=== PATIENT | male | born 1965 | race Caucasian/White ===

== ENCOUNTER 2017-07-16 06:49 | Day surgery (SDC) | payer OTHER ==
[2017-07-16] MEDS ORDERED: ECOTRIN PO NR (07:37)
[2017-07-16] MEDS ORDERED: NACL 0.9% 500 ML 500 ML IV SCH (08:00)
[2017-07-16 08:02] LABS: Basophils % (Auto) 0.7 % (0.0-1.8); Eosinophils # (Auto) 0.4 K/mm3 (0.0-0.4); Eosinophils % (Auto) 8.7 % (0.0-4.3); Hemoglobin 13.4 gm/dl (11.8-15.2); Lymphocytes # (Auto) 1.1 K/mm3 (1.2-5.4); Lymphocytes % (Auto) 26.8 % (13.4-35.0); Mean Corpuscular HGB Conc 34 % (32-34); Mean Corpuscular Hemoglobin 34 pg (28-32); Mean Corpuscular Volume 100 fl (84-94); Monocytes # (Auto) 0.5 K/mm3 (0.0-0.8); Monocytes % (Auto) 11.7 % (0.0-7.3); Platelet Count 142 K/mm3 (140-440); Red Blood Count 3.89 M/mm3 (3.65-5.03); Red Cell Distribution Width 12.3 % (13.2-15.2)
[2017-07-16 08:15] LABS: INR 0.95 (0.87-1.13)
[2017-07-16 08:19] LABS: BUN/Creatinine Ratio 20; Blood Urea Nitrogen 12 mg/dL (9-20); Calcium 9.1 mg/dL (8.4-10.2); Hemolysis Index 10
[2017-07-16] MEDS ORDERED: HEPARIN/NS 5000 UNIT/500ML(CATH LAB) 1,000 ML IR ONE (08:35)
[2017-07-16] MEDS ORDERED: XYLOCAINE 2% INFILTRATI ONE (08:36)
[2017-07-16] MEDS: NITROGLYCERIN SYRINGE 3 ML ONE ×2 (09:16→09:23)
[2017-07-16] MEDS: CALAN ONE ×2 (09:19→09:23)
[2017-07-16] MEDS: HEPARIN 10,000 UNITS/10 ML ONE ×2 (09:19→09:23)
[2017-07-16] MEDS: SUBLIMAZE ONE ×2 (09:20→09:21)
[2017-07-16] MEDS: VERSED ONE ×2 (09:20→09:21)
--- NOTE | 2017-07-16 09:53 | Discharge Summary ---
Short Stay Discharge Plan Activity: advance as tolerated Weight Bearing Status: Full Weight Bearing Diet: low fat, low cholesterol, low salt, diabetic Wound: keep clean and dry Special Instructions: no heavy lifting (3 days), hold Metformin (48 hours only) Follow up with: MARCIO TOWNSEND MD [Primary Care Provider] - 7 Days RADHA PUENTE MD [Staff Physician] - 7 Days Prescriptions: Lisinopril [Prinivil] 5 mg PO QDAY #30 tablet
[2017-07-16] MEDS ORDERED: NACL 0.9% 1000 ML 1,000 ML IV SCH (10:00)
--- NOTE | 2017-07-16 10:03 | Cardiac Catherization Report ---
REASON FOR PROCEDURE: Abnormal thallium stress test. PROCEDURES: 1. Left heart catheterization. 2. Selective left and right coronary angiography. 3. Left ventricular angiography. The patient was prepped and draped in a sterile fashion after informed consent. The right radial cath site was prepped and draped after a negative Melquiades's test. The right radial artery was entered using the Seldinger technique followed by placement of a 6-Luxembourger hydrophilic sheath. Selective left and right coronary angiography was performed using a Pb catheter. Following that, left ventricular angiography was performed using a pigtail catheter. The catheters were removed, sheath removed. Hemostasis achieved using manual compression. The patient was returned to the postprocedure unit in stable condition. There were no complications. FINDINGS: HEMODYNAMICS: Left ventricular end-diastolic pressure was 15, following coronary angiography. Ascending aortic pressure was 120/82. There was no significant pressure gradient on pullback across the aortic valve. CORONARY ANGIOGRAPHY: The left main coronary artery was angiographically normal. The left anterior descending artery and its diagonal branches were angiographically normal. The circumflex artery and its obtuse marginal branches were angiographically normal. The right coronary artery was dominant and similarly angiographically normal. Left ventricle is moderately to severely dilated. There was severe left ventricular systolic dysfunction with diffuse hypokinesis. Left ventricular ejection fraction estimated at 20%. CONCLUSION: 1. Angiographically normal coronary arteries. 2. Dilated, nonischemic cardiomyopathy, severe left ventricular systolic dysfunction, ejection fraction 20%. RECOMMENDATION: Medical therapy for nonischemic cardiomyopathy. JOB# [id number] CA/NTS
[2017-07-16 13:11] VITALS: BP 126/84
== END 2017-07-16 13:26 | disposition home or self-care (01) ==
LOC: CATHLABREC 06:49
PROVIDERS: ATTEND Internal Medicine Cardiovascular Disease
DX: I42.0 Dilated cardiomyopathy (principal); I51.9 Heart disease, unspecified; I44.7 Left bundle-branch block, unspecified; E11.9 Type 2 diabetes mellitus without complications; Z79.82 Long term (current) use of aspirin; Z79.899 Other long term (current) drug therapy; Z79.84 Long term (current) use of oral hypoglycemic drugs; Z83.3 Family history of diabetes mellitus
CPT/HCPCS: 36415; 80048; 85025; 85610; 85730; 93005; 93010; 93458; 99156; C1887; C1894; J1644; J2250; J3010; J7040; Q9967

== ENCOUNTER 2017-11-20 07:35 | Outpatient (CLI) | payer OTHER | END 2017-11-20 07:36 | disposition home or self-care (01) | LOC: ECHO 07:35 | PROVIDERS: ATTEND Internal Medicine Cardiovascular Disease | DX: I08.1 Rheumatic disorders of both mitral and tricuspid valves (principal); I42.9 Cardiomyopathy, unspecified; I44.7 Left bundle-branch block, unspecified; I10 Essential (primary) hypertension; E03.9 Hypothyroidism, unspecified; Z83.3 Family history of diabetes mellitus; Z98.890 Other specified postprocedural states | CPT/HCPCS: 93306 ==